=== PATIENT | male | born 1980 | race Caucasian/White ===

== ENCOUNTER 2018-09-16 16:21 | Inpatient (IN) | payer OTHER ==
[2018-09-16] VITALS (7 sets, daily range): BP systolic 119–141; BP diastolic 71–90
[~2018-09-16] VITALS: Ht 182.9 cm; Wt 92.1 kg
[2018-09-16] MEDS ORDERED: SERTRALINE HCL50 MG PO (16:28)
[2018-09-16] MEDS ORDERED: OMEPRAZOLE 20 M20 M1 PO (16:29)
[2018-09-16] MEDS ORDERED: ADDERALL 20 MG20 M1 PO (16:29)
[2018-09-16 16:41] LABS: ABSOLUTE BASOPHILS 0.1 thou/uL (0.0-0.2); ABSOLUTE EOSINOPHILS 0.3 thou/uL (0.0-0.7); ABSOLUTE LYMPHOCYTES 2.2 thou/uL (0.8-5.3); ABSOLUTE MONOCYTES 1.2 thou/uL (0.0-1.2); ABSOLUTE NEUTROPHILS 13.3 thou/uL (1.6-8.1); BASOPHILS 0.8 %; EOSINOPHILS 1.7 %; HEMATOCRIT 44.6 % (42.0-52.0); HEMOGLOBIN 15.4 gm/dL (14.0-18.0); MCH 30.6 pg (26.0-34.0); MCHC 34.5 g/dL (28.0-37.0); MCV 88.7 fL (80.0-100.0); MONOCYTES 6.8 %; MPV 8.5 fl. (7.2-11.1); NUCLEATED RBCS 0 /100WBC; PLATELET COUNT* 285 thou/uL (150-400); POLYS 77.7 %; RBC 5.02 mil/uL (4.50-6.00); RDW-CV 13.7 % (10.5-14.5); WBC 17.1 thou/uL (4.0-11.0)
[2018-09-16 16:54] LABS: INR 0.9; PROTIME 9.6 Seconds (9.20-11.50)
[2018-09-16 17:01] LABS: ALBUMIN 3.9 g/dL (3.4-5.0); CALCIUM 9.3 mg/dL (8.5-10.1); CREATININE 0.9 mg/dL (0.6-1.3); POTASSIUM 4.2 mmol/L (3.5-5.1); TOTAL BILIRUBIN 0.2 mg/dL (<0.1-1.0); TOTAL PROTEIN 7.8 g/dL (6.4-8.2)
[2018-09-16 17:22] LABS: TROPONIN-I LEVEL 13.08 ng/mL (<0.06)
[2018-09-16 22:19] LABS: AMP/METHAMP Negative (Negative); BARBITURATES Negative (Negative); BENZODIAZEPINES Negative (Negative); COCAINE Negative (Negative); METHADONE Negative (Negative); OPIATES Negative (Negative); PCP Negative (Negative); THC Negative (Negative)
[2018-09-17] VITALS (32 sets, daily range): BP systolic 102–170; BP diastolic 53–98
[2018-09-17 00:46] LABS: CALCIUM 8.5 mg/dL (8.5-10.1); CREATININE 0.8 mg/dL (0.6-1.3); POTASSIUM 3.9 mmol/L (3.5-5.1)
[2018-09-17 01:02] LABS: ABSOLUTE BASOPHILS 0.1 thou/uL (0.0-0.2); ABSOLUTE EOSINOPHILS 0.4 thou/uL (0.0-0.7); ABSOLUTE LYMPHOCYTES 3.1 thou/uL (0.8-5.3); ABSOLUTE MONOCYTES 1.3 thou/uL (0.0-1.2); BASOPHILS 0.7 %; EOSINOPHILS 2.6 %; HEMATOCRIT 41.9 % (42.0-52.0); HEMOGLOBIN 13.9 gm/dL (14.0-18.0); LYMPHOCYTES 19.6 %; MCH 29.8 pg (26.0-34.0); MCHC 33.2 g/dL (28.0-37.0); MCV 89.8 fL (80.0-100.0); MONOCYTES 8.2 %; MPV 8.8 fl. (7.2-11.1); NUCLEATED RBCS 0 /100WBC; PLATELET COUNT* 272 thou/uL (150-400); POLYS 68.9 %; RBC 4.67 mil/uL (4.50-6.00); RDW-CV 13.5 % (10.5-14.5)
[2018-09-17 08:10] LABS: ALBUMIN 3.4 g/dL (3.4-5.0); ALKALINE PHOSPHATASE 90 U/L (46-116); CHOLESTEROL 179 mg/dL (<200); DIRECT BILIRUBIN 0.1 mg/dL (<0.1-0.3); HDL CHOLESTEROL 50 mg/dL (>40); LDL CHOLESTEROL 111 mg/dL (<100); SGOT 81 U/L (15-37); SGPT 35 U/L (30-65); TC:HDL 3.6 Ratio (Not establshd); TOTAL BILIRUBIN 0.5 mg/dL (<0.1-1.0); TOTAL PROTEIN 6.8 g/dL (6.4-8.2); TRIGLYCERIDE 91 mg/dL (<150); VLDL 18 mg/dL (<40)
[2018-09-17 08:11] LABS: SERUM ASSESSMENT Clear
--- NOTE | 2018-09-17 12:15 | EKG ---
[place] [address] ELECTROCARDIOGRAM REPORT Name: FRANK FINE Room: [address] ADM IN [facility].#: [id number] Admission: 09/16/18 Attend Phys: Jhony Delcid MD Discharge: Date of : 82 Report #: [id number] THIS REPORT FOR: //name// [facility] ED Test Date: 2018-09-16 Test Time: 16:25:38 Pat Name: FRANK FINE Department: Room: [facility] Gender: Shot Grinder Operator: Mary Alice GUZMAN : 1980 Requested By: Amparo Escalante Order Number: [id number] MD: David Haynes Measurements Intervals [place] Rate: 93 P: 67 ID: 146 QRS: 21 QRSD: 97 T: -26 QT: 353 QTc: 440 Interpretive Statements Sinus rhythm Inferior infarct, age indeterminate No previous ECG available for comparison Electronically Signed On 09-17-2018 12:15:20 CDT by David Haynes [email or web address] <ELECTRONICALLY SIGNED> By: David Haynes MD, [facility] 09/17/18 1215 1625 1625 David Haynes MD, FACC /EPI
--- NOTE | 2018-09-17 12:17 | EKG ---
[place] [address] ELECTROCARDIOGRAM REPORT Name: FRANK FINE Room: [address] ADM IN [facility]#: [id number] Admission: 09/16/18 Attend Phys: Jhony Delcid MD Discharge: Date of : 82 Report #: [id number] THIS REPORT FOR: //name// [facility] ED Test Date: 2018-09-16 Test Time: 18:39:00 Pat Name: FRANK FINE Department: Room: [facility] Gender: Male Commercial Title Examiner: ALBERTO : 1980 Requested By: Amparo Escalante Order Number: [id number] MD: David Haynes Measurements Intervals [place] Rate: 71 P: 65 CO: 149 QRS: 21 QRSD: 98 T: -25 QT: 410 QTc: 446 Interpretive Statements Sinus rhythm Nonspecific T abnormalities, inferior leads Electronically Signed On 09-17-2018 12:17:00 CDT by David Haynes [email or web address] <ELECTRONICALLY SIGNED> By: David Haynes MD, [facility] 09/17/18 1217 1839 183 David Haynes MD, FACC /EPI
--- NOTE | 2018-09-17 12:20 | EKG ---
[place] [address] ELECTROCARDIOGRAM REPORT Name: FRANK FINE Room: [address] ADM IN .R.#: [id number] Admission: 09/16/18 Attend Phys: Jhony Delcid MD Discharge: Date of : 82 Report #: [id number] THIS REPORT FOR: //name// [facility] Test Date: 2018-09-16 Test Time: 22:08:34 Pat Name: FRANK VARGASROSE Department: Room: [address] Gender: M Shake Packer: CHRISTIAN : 1980 Requested By: Arnold Stone Order Number: [id number] Jerry MD: David Haynes Measurements Intervals [place] Rate: 84 P: 71 [place]: 157 QRS: 35 QRSD: 99 T: -40 QT: 412 QTc: 488 Interpretive Statements Sinus rhythm Probable inferior infarct, age indeterminate Electronically Signed On 09-17-2018 12:19:54 CDT by David Haynes [email or web address] <ELECTRONICALLY SIGNED> By: David Haynes MD, [facility] 09/17/18 1219 2207 07 David Haynes MD, FACC /EPI
--- NOTE | 2018-09-17 12:23 | EKG ---
[place] [address] ELECTROCARDIOGRAM REPORT Name: FRANK FINE Room: [address] ADM IN .R.#: [id number] Admission: 09/16/18 Attend Phys: Jhony Delcid MD Discharge: Date of : 82 Report #: [id number] THIS REPORT FOR: //name// [facility] Test Date: 2018-09-17 Test Time: 10:57:32 Pat Name: FRANK FINE Department: Room: [address] Gender: M Yield Loss Inspector: RASHIDA : 1980 Requested By: David Haynes Order Number: [id number] Jerry MD: David Haynes Measurements Intervals [place] Rate: 73 P: 60 NM: 154 QRS: 22 QRSD: 99 T: -24 QT: 434 QTc: 479 Interpretive Statements Sinus rhythm Inferior infarct, age indeterminate Electronically Signed On 09-17-2018 12:23:39 CDT by David Haynes [email or web address] <ELECTRONICALLY SIGNED> By: David Haynes MD, [facility] 09/17/18 1223 1057 1057 David Haynes MD, FACC /EPI
--- NOTE | 2018-09-17 19:05 | CARD ---
[address] [address] CARDIAC CATH REPORT Name: FRANK FINE Room: [address] IN [facility]#: [id number] Admission: 09/16/18 Attend Phys: Jhony Delcid MD Discharge: Date of : 82 Report #: [id number] THIS REPORT FOR: //name// APPROVED REPORT Study performed: 09/17/2018 08:13:07 Patient Details Patient Status: In-Patient Room #: The patient is a 38 year-old male Event Personnel David Haynes Professor Of Marketing, Haylie Oliveira RN Lead Care Manager, Eliud VieraIS Monitor, Marciano Lundy (R) Scrub Procedures Performed Left Heart Cath w/or w/o Coronaries [id number] [facility] Place w/wo Plasty Single RCA [id number] Indication Non-STEMI , Chest pain Risk Factors Tobacco History () Admission/Lab Medications/Medications given during procedure Glycoprotein IllbIlla Inhibitors, Heparin Unfract. Procedure Narrative The patient was brought electively to the Cardiac Catheterization Laboratory and was prepped and draped in a sterile manner. The right wrist was infiltrated with 1% Lidocaine subcutaneous anesthesia. A Slender Glidesheath sheath was inserted into the RFA. Coronary angiography was performed using coronary diagnostic catheters. The right coronary system was accessed and visualized with a JR4 catheter. The left coronary system was accessed and visualized with a JL4 catheter. The left ventricle was accessed and visualized with a PIG catheter. Left ventricular/Aortic Valve gradient assessed via catheter pullback. Left ventriculogram was performed in [place] projection. Closure device was deployed with a 6 Fr Vasc-Band Reg 24cm. The patient tolerated the procedure well and there were no complications associated with the procedure. There [place] [address] CARDIAC CATH REPORT Name: FRANK FINE Room: [address]#: [id number] Admission: 09/16/18 Attend Phys: Jhony Delcid MD Discharge: Date of : 82 Report #: [id number] Intraoperative Conscious Sedation Fentanyl mcg Dose: 78.2 mGy Contrast Type and Amount: Omnipaque 300 ml Coronary Angiography The patient's coronary anatomy is right dominant. Diagnostic Cath Left Main 0% stenosis LAD 50% distal stenosis Circumflex 0% stenosis Right Coronary appeared acutely occluded proximally with thrombus and retrograde collaterals from the left coronary. 50% distal stenosis noted Left Ventriculography The left ventricular ejection fraction is estimated to be 40%. Left ventricular wall motion abnormalities are present. There is no mitral insufficiency. moderate inferior wall hypokinesis noted Hemodynamics The aortic pressure is 107/66 mmHg with a mean of 85 mmHg. The left ventricular pressure is 103/10 mmHg with a mean of mmHg. The left ventricular end diastolic pressure is 15 mmHg. There was no gradient across the aortic valve upon pullback. Pullback from the left ventricle to the aorta revealed no gradient across the aortic valve. PCI Technique Lesion Anticoagulation was achieved with Heparin. iv bolus and infusion of aggrastat given Percutaneous coronary intervention was performed on the proximal right coronary artery. The lesion stenosis prior to intervention was 100% with LENCHO 0 flow. A 6FR JCR 4 100CM Guide Catheter was used to engage the rca ostium. A Whisper Wire 190CM Interventional Guidewire was used to cross the lesion. BALLOON DILATION A Balloon catheter 2.5 mm x 8 mm was inserted and inflated up to 16atm for 15 secondsseconds. Repeat angiography revealed the following post-dilatation results: 90% stenosis. Unable to advance BMW wire across the stenosis, which required a whisper wire. Extensive thrombus noted after wire inserted past the stenosis, [place] [address] CARDIAC CATH REPORT Name: FRANK FINE Room: [address]#: [id number] Admission: 09/16/18 Attend Phys: Jhony Delcid MD Discharge: Date of : 82 Report #: [id number] Pronto aspiration catheter was inserted into the proximal rca, and aspiration yielded no thrombus. RCA lumen initially appeared narrow, and IC Nitro was given. STENT DEPLOYMENT A drug-eluting stent Xience Nadine 2.5X23mm was inserted and inflated up to 16.00atm for 21seconds. Repeat angiography revealed the following post-stent deployment results: 0% stenosis. Proximal RCA appeared to have a larger lumen, and a second more proximal stent was placed with minimall overlap with the more distal stent. This 3.0 x 18 mm drug eluting stent was inflated up to 16 manasa. POST STENT DEPLOYMENT BALLOON DILATION A Balloon catheter 4.0 x 15 mm was inserted and inflated up to 12 manasa for 19seconds. Repeat angiography revealed the following post-dilatation results: 0% stenosis. Final angiography reveals 0 % stenosis with LENCHO 3 flow. Conclusion 1. Recent occlusion of the proximal rca 2. successful placement of 2 drug eluting stents in the proximal rca 3. LVEF 40% Recommendations Cardiac Rehabilitation Referral Aggressive Medical Therapy Medications Administered Ticagrelor <ELECTRONICALLY SIGNED> By: David Haynes MD, [facility] 09/17/181904 04 04Dachuyita Haynes MD, FACC /INF
[2018-09-17 22:10] LABS: GLYCOHEMOGLOBIN (HGB A1C) 5.5 % (4.8-5.6)
[2018-09-18 04:00] VITALS: BP 123/56; BP 90/46
[2018-09-18 04:58] LABS: HEMATOCRIT 44.3 % (42.0-52.0); HEMOGLOBIN 14.5 gm/dL (14.0-18.0); MCH 29.7 pg (26.0-34.0); MCHC 32.9 g/dL (28.0-37.0); MCV 90.5 fL (80.0-100.0); MPV 8.8 fl. (7.2-11.1); RBC 4.9 mil/uL (4.50-6.00); RDW-CV 13.9 % (10.5-14.5); WBC 11.7 thou/uL (4.0-11.0)
[2018-09-18 05:26] LABS: ALBUMIN 3.3 g/dL (3.4-5.0); CALCIUM 9.1 mg/dL (8.5-10.1); POTASSIUM 4.5 mmol/L (3.5-5.1); TOTAL BILIRUBIN 0.4 mg/dL (<0.1-1.0); TOTAL PROTEIN 7.1 g/dL (6.4-8.2)
[2018-09-18 05:28] LABS: TROPONIN-I LEVEL 9.69 ng/mL (<0.06)
[2018-09-18 08:00] VITALS: BP 136/89
[2018-09-18 09:45] VITALS: BP 128/73
[2018-09-18 09:48] VITALS: BP 136/89
[2018-09-18] MEDS ORDERED: ATORVASTATIN CA40 MG PO (09:54)
[2018-09-18] MEDS ORDERED: ASPIR 8181 MG PO (09:54)
[2018-09-18] MEDS ORDERED: LOPRESSOR25 PO (09:54)
[2018-09-18] MEDS ORDERED: BRILINTA90 MG PO (09:54)
[2018-09-18] MEDS ORDERED: CARVEDILOL12.5 MG PO (10:04)
--- NOTE | 2018-09-18 10:42 | EKG ---
[place] [address] ELECTROCARDIOGRAM REPORT Name: FRANK FINE Room: [address] ADM IN .R.#: [id number] Admission: 09/16/18 Attend Phys: Jhony Delcid MD Discharge: Date of : 82 Report #: [id number] THIS REPORT FOR: //name// [facility] Test Date: 2018-09-18 Test Time: 04:13:10 Pat Name: FRANK FINE Department: Room: [facility] Gender: Shirt Marker: : 1980 Requested By: David Haynes Order Number: [id number] Reading MD: Arnold Stone Measurements Intervals [place] Rate: 59 P: 60 [place]: 154 QRS: 28 QRSD: 98 T: -19 QT: 441 QTc: 437 Interpretive Statements Sinus rhythm Nonspecific T abnormalities, inferior leads Baseline wander in lead(s) V4 Compared to ECG 09/17/2018 10:57:32 T-wave abnormality now present Myocardial infarct finding no longer present Electronically Signed On 09-18-2018 10:42:26 CDT by Arnold Stone [email or web address] <ELECTRONICALLY SIGNED> By: Arnold Stone MD, FACC 09/18/18 1042 0413 0413 Arnold Stone MD, FAC /EPI
[2018-09-18] MEDS ORDERED: NITROGLYCERIN0.4 MG SUBLING (11:00)
[2018-09-18] MEDS ORDERED: NICOTINE TRANSD21 M1 TRANSDERM (11:01)
[2018-09-18] MEDS ORDERED: CARVEDILOL3.125 MG PO (11:06)
--- NOTE | 2018-09-18 15:53 | CON ---
[address] [address] CONSULTATION Name: FRANK FINE Room: [address] IN M.R.#: [id number] Admission: 09/16/18 Attend Phys: Jhony Delcdi MD Discharge: 09/18/18 Date of : 82 Report #: [id number] THIS REPORT FOR: //name// CC: Jhony Delcid [facility] physician/PCP DATE OF SERVICE: 09/17/2018 HISTORY OF PRESENT ILLNESS: The patient is a 38-year-old white male who I was asked to see in the hospital today after he had evidence of chest pain. The patient's primary care physician is Dr. Ashraf, who recently retired. He stays fairly active, working in construction. He has had no previous cardiac evaluation or cardiac history. However, the past couple of days has had intermittent chest pain that goes into his left arm, makes him diaphoretic and short of breath. It occurs off and on. It is not related to activity or meals. He has had no bleeding. He denied any fever or cough. He denied trauma to his chest. His brought him to the hospital yesterday. He was admitted. He was found to have evidence non-STEMI. I was asked to see him for further evaluation and treatment. He has had no significant chest pain since that time. PAST MEDICAL HISTORY: He has had ankle surgery. No history of hypertension, diabetes, hyperlipidemia. Does have a history of ADD and seen a psychiatrist in the past. MEDICATIONS: Zoloft, Prozac, Adderall. ALLERGIES: He has no known drug allergies. FAMILY HISTORY: His mom had stent. SOCIAL HISTORY: He is . He and his live in [place]. He works in construction. Smokes a pack of cigarettes a day. No illicit drug use. He did a history of alcohol abuse in the past, went through AA, no longer abuses alcohol. REVIEW OF SYSTEMS: He has had no history of stroke, asthma, peptic ulcer disease, liver disease, kidney disease, cancer, psychiatric illness, chronic skin condition. PHYSICAL EXAMINATION: GENERAL: Revealed a middle-aged male, appeared in no distress. VITAL SIGNS: He had a blood pressure of 110/60, his pulse is 80, and afebrile. HEENT: Eyes anicteric. Conjunctivae pink. Mucous membranes moist. NECK: Veins nondistended. No carotid bruits. Neck supple. CHEST: Clear to auscultation. CARDIOVASCULAR: [place] [address] CONSULTATION Name: FRANK FINE Wilner Room: [address]#: [id number] Admission: 09/16/18 Attend Phys: Jhony Delcid MD Discharge: 09/18/18 Date of : 82 Report #: [id number] ABDOMEN: Soft. EXTREMITIES: Had no edema. Pulse 2+ bilaterally. SKIN: Warm, dry. NEUROLOGIC: Nonfocal. LYMPH: No adenopathy. MUSCULOSKELETAL: No joint effusion. RADIOLOGICAL DATA: His ECG on admission yesterday showed sinus rhythm. There is T-wave inversion in lead 3 and aVF. His workup in the Emergency Room last night, he had a chest x-ray that showed normal heart size, granuloma in the right upper lobe. LABORATORY DATA: Sodium 139, BUN 16, creatinine 0.8, glucose 112. Liver function studies were normal. His troponin on admission was 13.08. Cholesterol 179, triglyceride 91, HDL 50, LDL 111. His white blood cell count 16.0, hemoglobin 13.9. IMPRESSION AND RECOMMENDATIONS: 1. Non-ST elevation myocardial infarction. Recommend cardiac catheterization. 2. Previous history of alcohol abuse. 3. Tobacco abuse. 4. History of attention deficit disorder. <ELECTRONICALLY SIGNED> By: David Haynes MD, [facility] 09/18/18 1553 0829 0046David Haynes MD, FACC /nt
== END 2018-09-18 11:40 | disposition home or self-care (01) | DRG 246 ==
LOC: M.ERS 16:21 → M.TBA-ER 18:19 → M.ICU 18:19 → M.2W 09-17 18:57
PROVIDERS: Internal Medicine; Personal Emergency Response Attendant; ADMIT Internal Medicine
DX: I21.4 Non-ST elevation (NSTEMI) myocardial infarction (principal); I50.21 Acute systolic (congestive) heart failure; I42.9 Cardiomyopathy, unspecified; I20.0 Unstable angina; F98.8 Other specified behavioral and emotional disorders with onset usually occurring in childhood and adolescence; F32.9 Major depressive disorder, single episode, unspecified; F17.210 Nicotine dependence, cigarettes, uncomplicated; Z79.899 Other long term (current) drug therapy

== ENCOUNTER 2018-10-02 13:25 | Inpatient (IN) | payer OTHER ==
[~2018-10-02] VITALS: Ht 182.9 cm; Wt 92.5 kg
[~2018-10-02 13:25] MED LIST: ADDERALL 20 MG20 M1 PO; ASPIR 8181 MG PO; ATORVASTATIN CA40 MG PO; BRILINTA90 MG PO; CARVEDILOL12.5 MG PO; CARVEDILOL3.125 MG PO; LOPRESSOR25 PO; NICOTINE TRANSD21 M1 TRANSDERM; NITROGLYCERIN0.4 MG SUBLING; OMEPRAZOLE 20 M20 M1 PO; SERTRALINE HCL50 MG PO
[2018-10-02 13:29] VITALS: BP 140/114
--- NOTE | 2018-10-02 15:39 | EKG ---
[place] [address] ELECTROCARDIOGRAM REPORT Name: FRANK FINE Room: [address] M.R.#: [id number] Admission: 10/02/18 Attend Phys: David Haynes MD, F Discharge: Date of : 82 Report #: [id number] THIS REPORT FOR: //name// [facility] ED Test Date: 2018-10-02 Test Time: 13:29:56 Pat Name: FRANK FINE Department: Room: [place] [address] Gender: M Direct Sales Professional: MS : 1980 Requested By: David Haynes Order Number: [id number] Jerry MD: Misbah Street Measurements Intervals [place] Rate: 52 P: 53 CO: 134 QRS: 33 QRSD: 107 T: -30 QT: 431 QTc: 401 Interpretive Statements Sinus rhythm RSR' in V1 or V2, right VCD or RVH Abnormal T, consider ischemia, inferior leads Compared to ECG 09/18/2018 04:13:10 Right ventricular hypertrophy now present RSR' in V1 or V2 now present Possible ischemia now present T-wave abnormality still present Electronically Signed On 10-02-2018 15:39:[address] [email or web address] <ELECTRONICALLY SIGNED> By: Misbah Street MD, FACC 10/02/18 [address] MD, FAC /EPI
[2018-10-02 16:12] VITALS: BP 138/88
[2018-10-02 17:27] VITALS: BP 151/81
[2018-10-02 19:30] VITALS: BP 151/81
[2018-10-03] VITALS (14 sets, daily range): BP systolic 110–144; BP diastolic 69–98
--- NOTE | 2018-10-03 10:47 | EKG ---
[place] [address] ELECTROCARDIOGRAM REPORT Name: FRANK FINE Room: [address] M.R.#: [id number] Admission: 10/02/18 Attend Phys: David Haynes MD, F Discharge: Date of : 82 Report #: [id number] THIS REPORT FOR: //name// [facility] Test Date: 2018-10-02 Test Time: 17:51:04 Pat Name: FRANK FINE Department: Room: [address] Gender: M Software Implementation Project Manager: Hira Garay : 1980 Requested By: Arnold Stone Order Number: [id number] Jerry MD: David Haynes Measurements Intervals [place] Rate: 67 P: 79 [place]: 156 QRS: 31 QRSD: 101 T: -34 QT: 437 QTc: 462 Interpretive Statements Sinus rhythm Inferior infarct, age indeterminate Compared to ECG 10/02/2018 13:29:56 no change Electronically Signed On 10-03-2018 10:47:29 CDT by David Haynes [email or web address] <ELECTRONICALLY SIGNED> By: David Haynes MD, [facility] 10/03/18 1047 1751 1751 David Haynes MD, [facility] /EPI
--- NOTE | 2018-10-03 10:48 | EKG ---
[place] [address] ELECTROCARDIOGRAM REPORT Name: FRANK FINE Room: [address] M.R.#: [id number] Admission: 10/02/18 Attend Phys: David Haynes MD, F Discharge: Date of : [birth year] Report #: [id number] THIS REPORT FOR: //name// [facility] Test Date: 2018-10-02 Test Time: 20:42:13 Pat Name: FRANK FINE Department: Room: [address] Gender: M Yard Pipe Grader: : 1980 Requested By: Arnold Stone Order Number: [id number] Reading MD: David Haynes Measurements Intervals [place] Rate: 71 P: 74 [place]: 153 QRS: 22 QRSD: 101 T: -33 QT: 422 QTc: 459 Interpretive Statements Sinus rhythm Inferior infarct, age indeterminate Electronically Signed On 10-03-2018 10:48:35 CDT by David Haynes [email or web address] <ELECTRONICALLY SIGNED> By: David Haynes MD, [facility] 10/03/18 1048 204 David Haynes MD, FACC /EPI
--- NOTE | 2018-10-03 10:52 | EKG ---
[place] [address] ELECTROCARDIOGRAM REPORT Name: FRANK FINE Room: [address] M.R.#: [id number] Admission: 10/02/18 Attend Phys: David Haynes MD, F Discharge: Date of : [birth year] Report #: [id number] THIS REPORT FOR: //name// [facility] Test Date: 2018-10-03 Test Time: 05:55:15 Pat Name: FRANK FINE Department: Room: [address] Gender: M Flake Miller Helper: : 1980 Requested By: David Haynes Order Number: [id number] Jerry MD: David Haynes Measurements Intervals [place] Rate: 67 P: 63 [place]: 151 QRS: 18 QRSD: 101 T: -32 QT: 424 QTc: 448 Interpretive Statements Sinus rhythm Inferior infarct, age indeterminate Electronically Signed On 10-03-2018 10:52:32 CDT by David Haynes [email or web address] <ELECTRONICALLY SIGNED> By: David Haynes MD, [facility] 10/03/18 1052 0555 0555 David Haynes MD, FACC /EPI
--- NOTE | 2018-10-03 15:38 | EKG ---
[place] [address] ELECTROCARDIOGRAM REPORT Name: FRANK FINE Room: [address] ADM IN .R.#: [id number] Admission: 10/03/18 Attend Phys: David Haynes MD, F Discharge: Date of : [birth year] Report #: [id number] THIS REPORT FOR: //name// [facility] Test Date: 2018-10-03 Test Time: 10:54:48 Pat Name: FRANK FINE Department: Room: [address] Gender: M Biomaterials Engineer: : 1980 Requested By: David Haynes Order Number: [id number] Jerry MD: David Haynes Measurements Intervals [place] Rate: 73 P: 62 CO: 161 QRS: 32 QRSD: 101 T: -38 QT: 437 QTc: 482 Interpretive Statements Sinus rhythm Inferior infarct, age indeterminate Baseline wander in lead(s) V2 Compared to ECG 10/03/2018 05:55:15 No significant changes Electronically Signed On 10-03-2018 15:38:40 CDT by David Haynes [email or web address] <ELECTRONICALLY SIGNED> By: David Haynes MD, [facility] 10/03/18 1538 1054 1054 David Haynes MD, [facility] /EPI
--- NOTE | 2018-10-03 16:26 | CARD ---
[address] [address] CARDIAC CATH REPORT Name: FRANK FINE Room: [address] IN ..#: [id number] Admission: 10/03/18 Attend Phys: David Haynes MD, F Discharge: Date of : [birth year] Report #: [id number] THIS REPORT FOR: //name// APPROVED REPORT Study performed: 10/03/2018 08:30:36 Patient Details Patient Status: In-Patient Room #: The patient is a 38 year-old male Event Personnel David Haynes Robotic Maintenance Technician, Haylie Oliveira RN RN, Aleksandr Kumar CRIME VICTIM SPECIALIST Monitor, Eliud Viera CRIME VICTIM SPECIALIST Scrub Procedures Performed cath pci Indication Abnormal ECG, Chest pain Risk Factors Coronary Artery Disease, Tobacco History () Previous Procedures/Diagnoses Previous PCI, Previous [place] Admission/Lab Medications/Medications given during procedure Glycoprotein IllbIlla Inhibitors, Heparin Unfract. Procedure Narrative The patient was brought electively to the Cardiac Catheterization Laboratory and was prepped and draped in a sterile manner. The right wrist was infiltrated with 1% Lidocaine subcutaneous anesthesia. A Slender Glidesheath sheath was inserted into the right radial artery. Coronary angiography was performed using coronary diagnostic catheters. The right coronary system was accessed and visualized with a Diagnostic - JR4 catheter. The left coronary system was accessed and visualized with a Diagnostic - JL4 catheter. The left ventricle was accessed and visualized with a Diagnostic - ANG PIG catheter. Left ventricular/Aortic Valve gradient assessed via catheter pullback. Left ventriculogram was performed in [place] projection. Closure device was deployed with a 6 Fr Vasc-Band Reg 24cm. The patient tolerated the procedure well and [place] [address] CARDIAC CATH REPORT Name: FRANK FINE Wilner Room: [address]#: [id number] Admission: 10/03/18 Attend Phys: David Haynes MD, F Discharge: Date of : 82 Report #: [id number] associated with the procedure. There was no hematoma. VASC BAND 11 CC Intraoperative Conscious Sedation Sedation start time: 906 Case end Time: 102 Fentanyl 150.0 mcg Versed 6 mg Fluoro Time: 21.5 minutes Dose: DAP [id number] cGycm2 1810 mGy Contrast Type and Amount: Omnipaque 210 ml Coronary Angiography The patient's coronary anatomy is right dominant. Diagnostic Cath Left Main 0% stenosis LAD 0% stenosis Circumflex 0% stenosis Right Coronary Stents were noted proximally that were occluded. Left Ventriculography The left ventricular ejection fraction is estimated to be 35-40%. Left ventricular wall motion abnormalities are present. There is no mitral insufficiency. infereior akinesis noted. Hemodynamics The aortic pressure is 108/76 mmHg with a mean of 91 mmHg. The left ventricular pressure is 114/10 mmHg with a mean of mmHg. The left ventricular end diastolic pressure is 10 mmHg. There was no gradient across the aortic valve upon pullback. Pullback from the left ventricle to the aorta revealed no gradient across the aortic valve. PCI Technique Lesion Anticoagulation was achieved with Heparin. bolus of iv aggrastat given Percutaneous coronary intervention was performed on the proximal right coronary artery. The lesion stenosis prior to intervention was 100% with LENCHO 0 flow. A 6F RCB 100CM Guide Catheter was used to engage the rca ostium. BALLOON DILATION Repeat angiography revealed the following post-dilatation results: 100% stenosis with dissection noted. Stents that had been placed 2 weeks previously appearred occluded. Possible dissection occured when placing the diagnostic rca catheter. Unable to place [place], [place] [address] CARDIAC CATH REPORT Name: FRANK FINE Room: [address]#: [id number] Admission: 10/03/18 Attend Phys: David Haynes MD, F Discharge: Date of : 82 Report #: [id number] prowater flex, nor roadrunner wire into true lumen despite using jrc4, jr4, and right svg guiding catheters. Possible that guidewire caused dissection. Left coronary angiogram demonstrated extensive collaterals to the rca. The rca had been totall occluded prior to stenting 2 weeks previously. The patient was hemodynamically stable, and it was decided to abandon further efforts at placing a wire into the true lumen. Final angiography reveals 100 % stenosis with LENCHO 3 flow. Conclusion 1. total occlusion of the rca that had been stented 2 weeks previously 2. Attempts at PTCA resulted in rca dissection and despite trying several guidewires and guide catheters, a wire could not be inserted into the true lumen 3. Collaterals noted from the rca to the lad 4. LVEF 35-40% Recommendations Smoking Cessation Aggressive Medical Therapy <ELECTRONICALLY SIGNED> By: David Haynes MD, [facility] 10/03/18 1626 162 1626Dachuyita Haynes MD, [facility] /INF
--- NOTE | 2018-10-03 16:40 | H ---
[address] [address] HISTORY AND PHYSICAL Name: FRANK FINE Room: [address] IN Kvng.Nina.#: [id number] Admission: 10/03/18 Attend Phys: David Haynes MD, F Discharge: Date of : 82 Report #: [id number] THIS REPORT FOR: //name// CC: David Haynes [facility] physician/PCP DATE OF SERVICE: 10/02/2018 HISTORY OF PRESENT ILLNESS: The patient is a 38-year-old white male who was admitted after an episode of chest pain. The patient had no previous history of heart disease. He presented with crescendo angina 2 weeks ago to [facility]. He was noted to have nonspecific ST-segment changes on his ECG. He ruled in for non-STEMI. I saw him in consultation. I performed a cardiac catheterization from the right radial artery. Results showed that the right coronary artery appeared to be recently occluded proximally. The LAD and circumflex had no significant disease. I then performed angioplasty and placed two drug-eluting stents in the right coronary artery for reperfusion. Ejection fraction was 40%. He tolerated the procedure well. He had no further angina, heart failure or bleeding. He was started on Brilinta. He returned to work, doing construction. Unfortunately, he still smokes, although he is trying to quit. He returned to see my nurse practitioner. He was doing well until earlier today, he developed a sharp pain in his chest, felt some shoulder discomfort. He felt diaphoretic and nauseated. His hands felt numb and stiff. He was in [place], [place], so he drove on to the Emergency Room at [facility]. He was evaluated there and noted to have an abnormal troponin. Admission was recommended; however, the patient refused. He left AMA, drove himself here to [place] for further evaluation and treatment. He denied the pain being similar to the pain he had with his non-STEMI recently. He denied any cough. Denied any belching. He denied the pain being related to food. He had no recent bleeding. Denied any recent trauma to his chest or rash. He denied any palpitations or syncope. He notes with his myocardial infarction, the chest pain felt more like a pressure sensation going down his arms. PAST MEDICAL HISTORY: Significant for ankle surgery. He has a history of ADD and saw a psychiatrist in the past. He has been on Adderall, recently ran out of it. MEDICATIONS: His previous medications include only Zoloft and Prozac. After his non-STEMI, he is now on Brilinta twice a day, aspirin 81 mg a day, Coreg 3.125 mg twice a day, Lipitor 40 mg a day. ALLERGIES: He had no known drug allergies. FAMILY HISTORY: His [place] [address] HISTORY AND PHYSICAL Name: FRANK FINE Wilner Room: [address] M.R.#: [id number] Admission: 10/03/18 Attend Phys: David Haynes MD, F Discharge: Date of : 82 Report #: [id number] SOCIAL HISTORY: He is . He and his live in [place]. He works in construction. He now smokes about half pack of cigarettes a day. No illicit drug use. He has a previous history of alcohol abuse, went to , no longer abuses alcohol. REVIEW OF SYSTEMS: No history of stroke, asthma, peptic ulcer disease, liver disease, kidney disease, cancer, chronic skin condition. PHYSICAL EXAMINATION: GENERAL: Revealed a middle-aged male who appeared in no distress. VITAL SIGNS: His blood pressure 130/60, pulse is 60. He was afebrile. LABORATORY DATA: His workup in the Emergency Room at [facility] earlier today included sodium 141, potassium 3.8 and creatinine 1.0, glucose is 144. His liver function studies were normal. Troponin initially was 0.06, repeat was 0.27. Urine drug screen positive for opiates. White blood cell count 17.1, hemoglobin 14.8. X-rays at [facility] included a portable chest x-ray that showed normal heart size and clear lung diaz. He underwent a CT scan of the chest using a PE protocol that showed no pulmonary embolus or aortic dissection. He actually underwent a CT scan of the abdomen and pelvis without contrast also that showed only evidence of diverticulosis, small inguinal hernia. IMPRESSION AND RECOMMENDATIONS: 1. Chest pain. Reason unclear. Symptoms are not suggestive of angina. 2. Recent non-ST elevation myocardial infarction. I would continue aspirin and Brilinta. 3. Cardiomyopathy. The patient is on Coreg. 4. Hyperlipidemia. The patient is on a statin drug. 5. History of attention deficit disorder. The patient has been on Adderall. 6. Tobacco abuse. Unfortunately, the patient continues to smoke. <ELECTRONICALLY SIGNED> By: David Haynes MD, FACC 10/03/18 1640 [id number] Haynes MD, FACC /nt
[2018-10-04 00:18] VITALS: BP 135/91
[2018-10-04 04:00] VITALS: BP 122/82
[2018-10-04 05:30] LABS: HEMATOCRIT 36.6 % (42.0-52.0); HEMOGLOBIN 12.3 gm/dL (14.0-18.0); MCH 30.3 pg (26.0-34.0); MCHC 33.6 g/dL (28.0-37.0); MCV 90.1 fL (80.0-100.0); MPV 8.8 fl. (7.2-11.1); RBC 4.06 mil/uL (4.50-6.00); RDW-CV 13.7 % (10.5-14.5); WBC 10.2 thou/uL (4.0-11.0)
[2018-10-04 05:58] LABS: CALCIUM 8.6 mg/dL (8.5-10.1); CREATININE 0.7 mg/dL (0.6-1.3)
[2018-10-04 06:01] LABS: TROPONIN-I LEVEL 16.6 ng/mL (<0.06)
[2018-10-04 08:00] VITALS: BP 137/85
[2018-10-04 09:49] VITALS: BP 122/82
[2018-10-04] MEDS ORDERED: LISINOPRIL2.5 MG PO (10:40)
[2018-10-04 10:41] VITALS: BP 122/82
--- NOTE | 2018-10-04 13:47 | D ---
[address] [address] DISCHARGE SUMMARY Name: FRANK FINE Room: [address] IN M.R.#: [id number] Admission: 10/03/18 Attend Phys: David Haynes MD, F Discharge: 10/04/18 Date of : 82 Report #: [id number] THIS REPORT FOR: //name// CC: DR JEREMY Haynes [facility] physician/PCP DATE OF SERVICE: 10/04/2018 FINAL DISCHARGE DIAGNOSES: 1. Non-ST segment elevation myocardial infarction. 2. Status post recent inferior infarction. 3. Ischemic cardiomyopathy. 4. Hyperlipidemia. 5. Tobacco abuse. 6. Status post prior stenting of the right coronary artery. PROCEDURES: 10/02/2018 -- left heart catheterization, selective coronary arteriography and unsuccessful attempt at recanalization of the occluded right coronary artery. The patient is a very pleasant active 38-year-old male who presented slightly greater than 2 weeks ago with acute inferior infarction interrupted by stenting of the right coronary artery. He re-presented on 10/02 with recurrent chest pain and was found to have a non-ST segment elevation infarction with total occlusion of the right coronary artery. There were collaterals from the left filling to distal right. Dr. Haynes was unable to recanalize the right coronary artery at that point. Ejection fraction was approximately 40% with akinesis of the basilar one-half of the inferior wall. The patient did well post-procedurally. Troponin mony to peak value of 19.95 and fell to 16.6 on 10/04. He ambulated in the hallways without difficulty, and there was good hemostasis at the right radial site of catheterization. LABORATORY DATA: On 10/04, revealed a sodium of 141, potassium 4.0, BUN 10, creatinine 0.7, glucose 95. Hemoglobin 12.3, white blood cell count 10,200, hematocrit 36.6, platelets 286,000. The patient is discharged to home in stable condition on the following medications: Aspirin 81 mg daily, atorvastatin 40 mg daily, carvedilol 6.25 mg b.i.d., nicotine patch 21 mg 1 patch daily, omeprazole 20 mg daily, sertraline 50 mg daily, ticagrelor 90 mg b.i.d. SOILA inhibitor was added in the form of lisinopril 2.5 mg daily. He is scheduled to return to see our nurse practitioner, Mckenna Toro, on 10/09/[address] Haynes on 11/02/2018[place] [address] DISCHARGE SUMMARY Name: FRANK FINE Wilner Room: [address]#: [id number] Admission: 10/03/18 Attend Phys: David Haynes MD, F Discharge: 10/04/18 Date of : 82 Report #: [id number] Thus, the patient is discharged to home in stable condition on the aforementioned medications with followup as iterated above. <ELECTRONICALLY SIGNED> By: Maximo Zhang MD, [facility] 10/04/18 1347 1026 [id number] Zhang MD, FAC /nt
--- NOTE | 2018-10-04 14:49 | EKG ---
[place] [address] ELECTROCARDIOGRAM REPORT Name: FRANK FINE Room: [address] DIS IN M.R.#: [id number] Admission: 10/03/18 Attend Phys: David Haynes MD, F Discharge: 10/04/18 Date of : 82 Report #: [id number] THIS REPORT FOR: //name// [facility] Test Date: 2018-10-04 Test Time: 08:06:11 Pat Name: FRANK FINE Department: Room: [address] Gender: M [employer] Sander: HAYDEN : 1980 Requested By: David Haynes Order Number: [id number] Jerry MD: Misbah Street Measurements Intervals [place] Rate: 74 P: 65 IA: 157 QRS: 42 QRSD: 102 T: -36 QT: 431 QTc: 479 Interpretive Statements Sinus rhythm Inferior infarct, age indeterminate Compared to ECG 10/03/2018 10:54:48 No significant changes Electronically Signed On 10-04-2018 14:49:[address] [email or web address] <ELECTRONICALLY SIGNED> By: Misbah Street MD, [facility] 10/04/18 [id number] MD, [facility] /EPI
== END 2018-10-04 11:05 | disposition home or self-care (01) | DRG 280 ==
LOC: M.ERS 13:25 → M.2W 13:49 → M.TBA-ER 13:49 → M.2W 16:42
PROVIDERS: ADMIT Internal Medicine Cardiovascular Disease
PROC: B2151ZZ Fluoroscopy of Left Heart using Low Osmolar Contrast (ICD-10-PCS; principal; 2018-10-03)
PROC: 4A023N7 Measurement of Cardiac Sampling and Pressure, Left Heart, Percutaneous Approach (ICD-10-PCS; principal; 2018-10-03)
PROC: B2111ZZ Fluoroscopy of Multiple Coronary Arteries using Low Osmolar Contrast (ICD-10-PCS; principal; 2018-10-03)
PROC: 02JA3ZZ Inspection of Heart, Percutaneous Approach (ICD-10-PCS; principal; 2018-10-03)
DX: I21.4 Non-ST elevation (NSTEMI) myocardial infarction (principal); I50.23 Acute on chronic systolic (congestive) heart failure; I42.9 Cardiomyopathy, unspecified; I25.118 Atherosclerotic heart disease of native coronary artery with other forms of angina pectoris; E78.5 Hyperlipidemia, unspecified; I25.5 Ischemic cardiomyopathy; I25.2 Old myocardial infarction; Z95.5 Presence of coronary angioplasty implant and graft; Z82.49 Family history of ischemic heart disease and other diseases of the circulatory system; Z71.6 Tobacco abuse counseling; Z79.899 Other long term (current) drug therapy